=== PATIENT | female | born 2000 | race Caucasian/White ===

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

== ENCOUNTER 2019-03-10 23:00 | Outpatient (CLI) | payer BC ==
[~2019-03-10] VITALS: Ht 167.6 cm; Wt 68.6 kg
[~2019-03-10 23:00] MED LIST changes: +MACROBID 1100 MG/CAP PO; +PHENERGAN 25 TA25 MG PO; +PRENATAL MVI
--- NOTE | 2019-03-10 23:00 | NUR ---
Ambulatory to unit for assessment of contractions "for the last 3 hours", accompanied by boyfried-father of babies. Oriented to room, monitor, plan of care.
[2019-03-10 23:40] VITALS: BP 117/73; PULSE 86; TEMP 98.1
[2019-03-11 00:30] VITALS: BP 107/62; PULSE 88
[2019-03-11 00:45] VITALS: BP 119/78; PULSE 103
[2019-03-11 01:30] VITALS: BP 97/55; PULSE 80
[2019-03-11 01:59] LABS: COLLECTION METHOD CLEAN CATCH
[2019-03-11 02:14] LABS: MUCOUS Present /lpf; PH 6 (5-8); URINE APPEARANCE Clear; URINE BACTERIA Rare /hpf; URINE BILIRUBIN Negative (NEGATIVE); URINE BLOOD Negative (NEGATIVE); URINE COLOR Yellow; URINE GLUCOSE Negative (NEGATIVE); URINE KETONE 2+ (NEGATIVE); URINE LEUKOCYTE ESTERASE 3+ (NEGATIVE); URINE NITRATE Negative (NEGATIVE); URINE PROTEIN(semi-quant) Negative (NEGATIVE); URINE RBC 0-2 /hpf
[2019-03-11 02:20] LABS: TRICYCLIC ANTIDEPRESS URINE NEGATIVE
--- NOTE | 2019-03-11 04:15 | NUR ---
Discharge instructions reviewed with pt, questions invited and answered. Ambulatory off unit.
== END 2019-03-11 04:20 | disposition home or self-care (01) ==
LOC: LDRO 23:00
PROVIDERS: Obstetrics & Gynecology
DX: O62.9 Abnormality of forces of labor, unspecified (principal); Z3A.30 30 weeks gestation of pregnancy
CPT/HCPCS: J3105; J7120

== ENCOUNTER 2019-03-26 23:54 | Outpatient (CLI) | payer BC ==
[~2019-03-26] VITALS: Ht 170.2 cm; Wt 68.6 kg
--- NOTE | 2019-03-27 | NUR ---
Pt arrived on unit ambulatory and escorted by significant other. Pt reports twin with cramping for the last hour while at home resting. Pt denies any leaking of fluid, vaginal bleeding and reports normal movement. EFM and toco monitors started. Vital signs WNL. SVE by this RN /. Information reviewed with Dr. Schmidt. FHR tracing reviewed. Orders for labor assessment received.
[2019-03-27 00:19] VITALS: BP 118/78; PULSE 67; TEMP 98.1
--- NOTE | 2019-03-27 01:35 | NUR ---
SVE by this RN with no change. Information reviewed with Dr. Schmidt. FHR tracing and ctx pattern reviewed. Orders for discharge home received. Discharge information, instructions and follow up care reviewed with pt and significant other at the bedside. Both verbalized an understanding, agree with the plan and states no questions or concerns at this time.
== END 2019-03-27 01:45 | disposition home or self-care (01) ==
LOC: LDRO 23:54
DX: O62.9 Abnormality of forces of labor, unspecified (principal); Z3A.33 33 weeks gestation of pregnancy

== ENCOUNTER 2019-03-28 09:30 | Inpatient (IN) | payer BC ==
[2019-03-28] VITALS (26 sets, daily range): BP systolic 84–128; BP diastolic 9–92; PULSE 54–100; TEMP 97.6–97.9
[~2019-03-28] VITALS: Ht 170.2 cm; Wt 70.9 kg
--- NOTE | 2019-03-28 09:35 | NUR ---
Pt here from ER and [facility]. 33week twin gestation that was [address] Grace. Pt to EFM, explained. Baby A to left lower abdomen and baby B is right lower abdomen. VSS, afebrile. Assessment complete. Dr Grace here and orders obtained. Baby A is breech presentation. IV #1 started to right wrist, lab work obtained. LR started and Pen G 5mu started IVPB. IV #2 IV started to left hand, 4gm Magnesium Sulfate started, see EMAR. 0955:Sultana catheter placed. UA and Urine drug screen obtained. Baby A and baby B is reactive at this time. 1007: Mag 2gm/hr started. 1015:Dr Grace at bedside. SVE: 100/0. Plan of care is to deliver twins here and [facility] team is on there way. Will wait for NICU team to be here for c/section unless delivery is eminent before there arrival.
[2019-03-28 09:59] LABS: COLLECTION METHOD CATHETER
[2019-03-28 10:05] LABS: BASO % 0.3 % (0.0-2.0); EOS # 0.1 (0.0-0.7); EOS % 0.6 % (0-4.0); GRAN # 7.3 (1.4-6.5); GRAN % 67.2 % (42.2-75.2); HEMATOCRIT 37.2 % (35.0-45.0); HEMOGLOBIN 12.2 g/dl (12.0-15.0); LYMPH # 2.6 (1.2-3.4); LYMPH % 23.6 % (20.0-51.0); MEAN CELL VOLUME 95 fl (80.0-95.0); MEAN CORPUSCULAR HEMOGLOBIN 31 pg (26.0-32.0); MEAN CORPUSCULAR HGB CONC 33 g/dl (33.0-37.0); MEAN PLATELET VOLUME 10.8 fl (7.4-10.4); MONO # 0.8 (0.1-0.6); MONO % 7.8 % (1.7-9.3); PLATELET COUNT 189 K/mm3 (130-400); RED BLOOD COUNT 3.92 M/mm3 (4.10-5.30); REDCELL DISTRIBUTION WIDTH-CV 13.5 % (11.5-14.5)
[2019-03-28 10:10] LABS: MUCOUS Present /lpf; PH 6 (5-8); SQUAMOUS EPITHELIAL 0-2 /hpf; URINE APPEARANCE Clear; URINE BACTERIA None Seen /hpf; URINE BILIRUBIN Negative (NEGATIVE); URINE BLOOD 1+ (NEGATIVE); URINE COLOR Yellow; URINE GLUCOSE Negative (NEGATIVE); URINE KETONE Trace (NEGATIVE); URINE LEUKOCYTE ESTERASE Negative (NEGATIVE); URINE NITRATE Negative (NEGATIVE); URINE PROTEIN(semi-quant) Negative (NEGATIVE); URINE UROBILINOGEN Negative (NEGATIVE)
[2019-03-28 10:12] LABS: ALBUMIN 3.3 gm/dL (3.5-5.0); BILIRUBIN,TOTAL 0.4 mg/dL (0.0-1.0); CALCIUM 8.8 mg/dL (8.4-10.2); CREATININE, serum 0.47 (0.52-1.25); POTASSIUM 3.7 mmol/L (3.4-5.0); TOTAL PROTEIN 6.6 gm/dL (6.4-8.2)
[2019-03-28 10:28] LABS: TRICYCLIC ANTIDEPRESS URINE NEGATIVE
--- NOTE | 2019-03-28 20:00 | NUR ---
ABD BINDER APPLIED- AMBULATES ENTIRE UNIT WITHOUT DIFFICULTY 0001: PARENTS VISIT
[2019-03-29 01:18] VITALS: BP 101/67; PULSE 63; TEMP 98.1
[2019-03-29 05:17] VITALS: BP 99/75; PULSE 59; TEMP 97.9
[2019-03-29 06:45] LABS: HEMOGLOBIN 10.5 g/dl (12.0-15.0)
[2019-03-29 06:50] VITALS: BP 107/72; PULSE 67; TEMP 97.6
[2019-03-29 07:05] LABS: HEMATOCRIT 32.9 % (35.0-45.0)
[2019-03-29] MEDS ORDERED: MOTRIN 600600 MG/TAB PO (08:50)
[2019-03-29] MEDS ORDERED: PERCOCET 325 MG1 TA2 PO (08:51)
--- NOTE | 2019-03-29 09:19 | NUR ---
Initial visit; Patient thanked [employer] for looking in on her and offering congratulations for the of her twins who have been transferred to [facility]. Al[employer] P[employer]rer will keep them in her prayers.
--- NOTE | 2019-03-29 12:23 | NUR ---
HECTOR rec'd consult due to patient's prior drug use history, bipolar, and depression. HECTOR met with patient. Patient is a new mother of twins. Patient's fiance/father of baby is and involved. Patient reports her parents lives in [place] but are her in [place] and plan to stay with patient for a few months after the twins are discharged from [facility]. Patient also has other local family support from her grandmother and also her fiances family. SW and patient discussed her prior drug history. Patient reports she has not smoked marijuana since prior to . Patient reports her fiance is very supportive in keeping her clean and she does not feel she needs drug treatment. Patient reports she has had a therapist in the past but does not seen her since October. Patient did not feel her therapist was beneficial to her. Patient is aware of the services that are provided on [facility] and will utilize them if needed. HECTOR provided a [facility] resouce guide as well. HECTOR reported back to patient's nurse.
== END 2019-03-29 12:30 | disposition home or self-care (01) | DRG 788 ==
LOC: LDRO 09:30 → LDR 09:31 → OB 19:10
PROVIDERS: ADMIT Obstetrics & Gynecology
PROC: 10D00Z1 Extraction of Products of Conception, Low, Open Approach (ICD-10-PCS; principal; 2019-03-28)
DX: O60.14X0 Preterm labor third trimester with preterm delivery third trimester, not applicable or unspecified (principal); O32.8XX1 Maternal care for other malpresentation of fetus, fetus 1; O32.8XX2 Maternal care for other malpresentation of fetus, fetus 2; O30.043 Twin pregnancy, dichorionic/diamniotic, third trimester; J45.909 Unspecified asthma, uncomplicated; O99.52 Diseases of the respiratory system complicating childbirth; Z37.2 Twins, both liveborn; Z3A.33 33 weeks gestation of pregnancy
CPT/HCPCS: J0690; J1885; J2270; J2370; J2405; J2540; J2590; J3475; J7120

== ENCOUNTER 2019-06-24 01:35 | Emergency (ER) | payer OTHER, BC ==
[~2019-06-24] VITALS: Ht 170.2 cm; Wt 62.7 kg
[~2019-06-24 01:35] MED LIST changes: +MOTRIN 600600 MG/TAB PO; +PERCOCET 325 MG1 TA2 PO
[2019-06-24 02:41] LABS: COLLECTION METHOD CLEAN CATCH
[2019-06-24 02:47] LABS: MUCOUS Present /lpf; PH 5 (5-8); SQUAMOUS EPITHELIAL 0-2 /hpf; URINE APPEARANCE Hazy; URINE BACTERIA None Seen /hpf; URINE BILIRUBIN Positive (NEGATIVE); URINE BLOOD Negative (NEGATIVE); URINE COLOR Yellow; URINE GLUCOSE Negative (NEGATIVE); URINE KETONE Negative (NEGATIVE); URINE LEUKOCYTE ESTERASE Negative (NEGATIVE); URINE NITRATE Negative (NEGATIVE); URINE PROTEIN(semi-quant) Negative (NEGATIVE); URINE RBC 0-2 /hpf
[2019-06-24 03:20] LABS: BASO # 0.1 (0.0-0.2); BASO % 0.9 % (0.0-2.0); EOS # 0.1 (0.0-0.7); EOS % 1.2 % (0-4.0); GRAN % 52.3 % (42.2-75.2); HEMATOCRIT 43.2 % (35.0-45.0); HEMOGLOBIN 13.6 g/dl (12.0-15.0); LYMPH # 2.8 (1.2-3.4); LYMPH % 36.4 % (20.0-51.0); MEAN CELL VOLUME 95 fl (80.0-95.0); MEAN CORPUSCULAR HEMOGLOBIN 30 pg (26.0-32.0); MEAN CORPUSCULAR HGB CONC 32 g/dl (33.0-37.0); MEAN PLATELET VOLUME 10.6 fl (7.4-10.4); MONO # 0.7 (0.1-0.6); MONO % 8.9 % (1.7-9.3); PLATELET COUNT 284 K/mm3 (130-400); RED BLOOD COUNT 4.57 M/mm3 (4.10-5.30); REDCELL DISTRIBUTION WIDTH-CV 12.9 % (11.5-14.5)
[2019-06-24 03:30] LABS: ALANINE AMINOTRANSFERASE < 6 U/L (9-52); ALBUMIN 4.5 gm/dL (3.5-5.0); ALKALINE PHOSPHATASE 56 U/L (50-136); ANION GAP 10 mmol/L (7-16); AST,SGOT 15 U/L (15-37); BILIRUBIN,TOTAL 0.2 mg/dL (0.0-1.0); BLOOD UREA NITROGEN 20 mg/dL (7-17); CALCIUM 9.8 mg/dL (8.4-10.2); CARBON DIOXIDE 27 mmol/L (22-30); CHLORIDE 105 mmol/L (98-107); CREATININE, serum 0.86 (0.52-1.25); GLUCOSE 91 mg/dL (74-106); SODIUM 141 mmol/L (137-145); TOTAL PROTEIN 8.2 gm/dL (6.4-8.2)
[2019-06-24 03:42] LABS: ACETAMINOPHEN < 10 ug/mL (10-30); ALCOHOL(ethanol),MEDICAL < 10 mg/dL; SALICYLATE < 1.0 mg/dL
[2019-06-24 03:53] LABS: TRICYCLIC ANTIDEPRESS URINE NEGATIVE
[2019-06-24 06:41] VITALS: TEMP 98.3
[2019-06-24 06:47] VITALS: BP 98/63; PULSE 61
== END 2019-06-24 07:07 | disposition home or self-care (01) ==
LOC: COL.ER 01:35
PROVIDERS: Emergency Medicine
DX: T50.992A Poisoning by other drugs, medicaments and biological substances, intentional self-harm, initial encounter (principal); R45.851 Suicidal ideations; F31.9 Bipolar disorder, unspecified

== ENCOUNTER 2021-05-23 22:13 | Emergency (ER) | payer OTHER ==
[~2021-05-23] VITALS: Ht 165.1 cm; Wt 54.5 kg
[2021-05-23 22:25] VITALS: TEMP 97
[2021-05-23 23:05] LABS: BASO # 0.1 K/mm3 (0.0-0.2); BASO % 0.4 % (0.0-2.0); EOS # 0.1 K/mm3 (0.0-0.7); EOS % 0.8 % (0-4.0); GRAN # 8.7 K/mm3 (1.4-6.5); GRAN % 70.3 % (42.2-75.2); HEMATOCRIT 42.9 % (37.0-47.0); HEMOGLOBIN 13.7 g/dl (12.5-16.0); LYMPH # 2.7 K/mm3 (1.2-3.4); LYMPH % 21.7 % (20.0-51.0); MEAN CELL VOLUME 92 fl (80.0-100.0); MEAN CORPUSCULAR HEMOGLOBIN 30 pg (27.0-31.0); MEAN CORPUSCULAR HGB CONC 32 g/dl (33.0-37.0); MEAN PLATELET VOLUME 10.2 fl (7.4-10.4); MONO # 0.8 K/mm3 (0.1-0.6); MONO % 6.5 % (1.7-9.3); PLATELET COUNT 304 K/mm3 (130-400); RED BLOOD COUNT 4.65 M/mm3 (4.10-5.30); REDCELL DISTRIBUTION WIDTH-CV 13.4 % (11.5-14.5)
[2021-05-23 23:35] LABS: COLLECTION METHOD CLEAN CATCH
[2021-05-23 23:36] LABS: ALANINE AMINOTRANSFERASE 14 U/L (0-55); ALBUMIN 4.4 gm/dL (3.5-5.0); ALKALINE PHOSPHATASE 75 U/L (0-750); ANION GAP 11 mmol/L (7-16); AST,SGOT 14 U/L (5-34); BILIRUBIN,TOTAL 0.2 mg/dL (0.2-1.2); BLOOD UREA NITROGEN 17 mg/dL (7-19); CARBON DIOXIDE 25 mmol/L (22-29); CHLORIDE 106 mmol/L (98-107); CREATININE, serum 0.76 mg/dL (0.57-1.11); GLUCOSE 89 mg/dL (70-99); POTASSIUM 4.2 mmol/L (3.5-4.5); SODIUM 142 mmol/L (136-145); TOTAL PROTEIN 8.1 gm/dL (6.2-8.1)
[2021-05-23 23:38] LABS: ACETAMINOPHEN < 1.0 ug/mL (10-30); ALCOHOL(ethanol),MEDICAL < 10 mg/dL (0-10); SALICYLATE < 5.0 mg/dL (15.0-30.0)
[2021-05-23 23:42] LABS: MUCOUS Present /lpf; PH 5 (5-8); URINE APPEARANCE Hazy; URINE BACTERIA None Seen /hpf; URINE BILIRUBIN Negative (NEGATIVE); URINE BLOOD Negative (NEGATIVE); URINE COLOR Yellow; URINE GLUCOSE Negative (NEGATIVE); URINE KETONE Trace (NEGATIVE); URINE LEUKOCYTE ESTERASE Negative (NEGATIVE); URINE NITRATE Negative (NEGATIVE); URINE PROTEIN(semi-quant) Negative (NEGATIVE); URINE RBC 0-2 /hpf; URINE UROBILINOGEN Negative (NEGATIVE)
[2021-05-23 23:51] LABS: TRICYCLIC ANTIDEPRESS URINE NEGATIVE
[2021-05-24 10:36] VITALS: BP 114/73; PULSE 91
== END 2021-05-24 10:30 ==
LOC: COL.ER 22:13
PROVIDERS: Nurse Practitioner
DX: R45.851 Suicidal ideations (principal); J45.909 Unspecified asthma, uncomplicated; F17.200 Nicotine dependence, unspecified, uncomplicated; Z20.822 Contact with and (suspected) exposure to COVID-19

== ENCOUNTER 2021-08-21 20:37 | Inpatient (IN) | payer OTHER ==
[~2021-08-21] VITALS: Wt 80.8 kg
[2021-08-21 21:31] LABS: BASO # 0.1 K/mm3 (0.0-0.2); BASO % 0.4 % (0.0-2.0); EOS # 0.1 K/mm3 (0.0-0.7); EOS % 0.5 % (0.0-4.0); GRAN # 11.9 K/mm3 (1.4-6.5); GRAN % 79.2 % (42.2-75.2); HEMATOCRIT 40.4 % (37.0-47.0); LYMPH % 13.5 % (20.0-51.0); MEAN CELL VOLUME 89 fl (80.0-100.0); MEAN CORPUSCULAR HEMOGLOBIN 29 pg (27-31); MEAN CORPUSCULAR HGB CONC 32 g/dl (33.0-37.0); MEAN PLATELET VOLUME 9.9 fl (7.4-10.4); MONO # 0.9 K/mm3 (0.1-0.6); MONO % 6.1 % (1.7-9.3); PLATELET COUNT 363 K/mm3 (130-400); RED BLOOD COUNT 4.54 M/mm3 (4.10-5.30); REDCELL DISTRIBUTION WIDTH-CV 13.2 % (11.5-14.5)
[2021-08-21 21:57] LABS: ALANINE AMINOTRANSFERASE 20 U/L (0-55); ALBUMIN 4.2 gm/dL (3.5-5.0); ALKALINE PHOSPHATASE 62 U/L (40-150); ANION GAP 10 mmol/L (7-16); AST,SGOT 33 U/L (5-34); BILIRUBIN,TOTAL 0.4 mg/dL (0.2-1.2); BLOOD UREA NITROGEN 16 mg/dL (7-19); CALCIUM 9.3 mg/dL (8.4-10.2); CARBON DIOXIDE 21 mmol/L (22-29); CHLORIDE 109 mmol/L (98-107); CREATININE, serum 0.96 mg/dL (0.57-1.11); GLUCOSE 117 mg/dL (70-99); POTASSIUM 4.3 mmol/L (3.5-4.5); SODIUM 140 mmol/L (136-145); TOTAL PROTEIN 7.8 gm/dL (6.2-8.1)
[2021-08-21 22:05] LABS: INR 1.2 (0.8-3.0); PROTHROMBIN TIME 12.8 SECONDS (9.7-12.8)
[2021-08-21 22:15] LABS: ALCOHOL(ethanol),MEDICAL < 10 mg/dL (0-10); SALICYLATE < 5.0 mg/dL (15.0-30.0)
[2021-08-22] VITALS (416 sets, daily range): BP systolic 102–126; BP diastolic 66–86; PULSE 70–86; TEMP 97.8–98.1; O2SAT 68–100
[2021-08-22 02:48] LABS: INR 1.3 (0.8-3.0); PROTHROMBIN TIME 13.9 SECONDS (9.7-12.8)
[2021-08-22 02:56] LABS: BILIRUBIN,TOTAL 0.4 mg/dL (0.2-1.2); C-REACTIVE PROTEIN 0.38 mg/dL (0.00-0.50)
[2021-08-22 07:05] LABS: BASO % 0.3 % (0.0-2.0); EOS % 0.3 % (0.0-4.0); GRAN # 5.3 K/mm3 (1.4-6.5); GRAN % 57.9 % (42.2-75.2); HEMOGLOBIN 12.9 g/dl (12.5-16.0); LYMPH % 32.8 % (20.0-51.0); MEAN CELL VOLUME 87 fl (80.0-100.0); MEAN CORPUSCULAR HEMOGLOBIN 29 pg (27-31); MEAN CORPUSCULAR HGB CONC 33 g/dl (33.0-37.0); MONO # 0.8 K/mm3 (0.1-0.6); MONO % 8.5 % (1.7-9.3); PLATELET COUNT 315 K/mm3 (130-400); RED BLOOD COUNT 4.46 M/mm3 (4.10-5.30); REDCELL DISTRIBUTION WIDTH-CV 13.1 % (11.5-14.5)
[2021-08-22 07:26] LABS: ALBUMIN 3.6 gm/dL (3.5-5.0); BILIRUBIN,DIRECT 0.2 mg/dL (0.0-0.5); BILIRUBIN,TOTAL 0.5 mg/dL (0.2-1.2); TOTAL PROTEIN 6.9 gm/dL (6.2-8.1)
[2021-08-22 07:28] LABS: ALBUMIN 3.6 gm/dL (3.5-5.0); BILIRUBIN,TOTAL 0.5 mg/dL (0.2-1.2); CALCIUM 8.7 mg/dL (8.4-10.2); CREATININE, serum 0.73 mg/dL (0.57-1.11); POTASSIUM 3.9 mmol/L (3.5-4.5)
--- NOTE | 2021-08-22 08:11 | NUR ---
report received from AMINTA Bartlett. Patient will come over to room 4 soon.
--- NOTE | 2021-08-22 08:20 | NUR ---
Patient arrive to ICU at this time. She is able to ambulate from cart to bed. She is on room air and only complains of slight pain to the right AC iv site. Denies headache or any other discomfort. VS WNL. Patient is oriented to room, assisted with ordering breakfast, assessment completed. Call light within reach and she is asked to call for any assistance.
[2021-08-22 10:24] LABS: COLLECTION METHOD CLEAN CATCH
[2021-08-22 10:31] LABS: MUCOUS Present (NOT PRESENT); PH 5 (5-8); URINE APPEARANCE Clear (CLEAR/HAZY); URINE BACTERIA None Seen /hpf (NONE SEEN); URINE BILIRUBIN Negative (NEGATIVE); URINE BLOOD Negative (NEGATIVE); URINE COLOR Yellow (YELLOW); URINE GLUCOSE Negative (NEGATIVE); URINE KETONE 2+ (NEGATIVE); URINE LEUKOCYTE ESTERASE Negative (NEGATIVE); URINE NITRATE Negative (NEGATIVE); URINE PROTEIN(semi-quant) Negative (NEGATIVE); URINE RBC 0-2 /hpf (0-2); URINE UROBILINOGEN Negative (NEGATIVE)
[2021-08-22 10:38] LABS: TRICYCLIC ANTIDEPRESS URINE NEGATIVE
--- NOTE | 2021-08-22 13:52 | NUR ---
Social Services Director contacted patient by phone to discuss discharge planning as she is in isolation for [facility]. Patient lives in [place] with her , Keyon (ph#[phone]) and their twins, age 5. Patient's parents, Pavel (ph#[phone]) and (ph#[phone]) live in [place]. Patient reports she does not have a current primary care physician but utilizes [facility] on [address] as needed. Patient obtains medications from [facility] pharmacy. Patient sees a psychiatrist and therapist on [place]. Patient does not use any DME and is independent with ADLS. Patient does not have Advance Directives and her , Keyon is her legal next of kin. Patient plans to return home upon discharge.
--- NOTE | 2021-08-22 18:42 | NUR ---
Patient did very well this shift. She is up independently in room. She calls appropriately. No complaints of pain or discomfort. She has very pleasant demeanor during each interaction. Will redraw lab work at 2100 and then discontinue Acetadote if acetaminophen level is negative at this time. This order was given by Dr. Roche through guidance from poison control.
--- NOTE | 2021-08-22 20:09 | NUR ---
PT SITTING UP IN BED. AWAKE, AAOX4. DENIES PAIN, SOA, N/V. REPORTS NO NEEDS. PT USING TOILET IN ROOM, HAS CALL LIGHT AND STATES UNDERSTANDING FOR POC FOR NIGHT. LABS TO BE DRAWN AT 2100, WILL FOLLOW. VSS, WILL CONTINUE TO MONITOR.
[2021-08-22 21:18] LABS: INR 1.4 (0.8-3.0)
[2021-08-22 21:38] LABS: ALBUMIN 3.4 gm/dL (3.5-5.0); BILIRUBIN,TOTAL 0.4 mg/dL (0.2-1.2); CALCIUM 8.7 mg/dL (8.4-10.2); CREATININE, serum 0.66 mg/dL (0.57-1.11); POTASSIUM 4.1 mmol/L (3.5-4.5); TOTAL PROTEIN 6.9 gm/dL (6.2-8.1)
--- NOTE | 2021-08-22 21:51 | NUR ---
ACETAMINOPHEN LEVEL 2, PER ORDER ACETADOTE INFUSION TURNED OFF. IV FLUSHED, SALINE LOCKED. PT REPORTS NO NEEDS. WILL CONTINUE TO MONITOR.
--- NOTE | 2021-08-22 22:38 | NUR ---
CALL FROM POISON CONTROL, UPDATED THEM WITH LABS AND VITAL SIGNS.
[2021-08-23] VITALS: BP 105/82; PULSE 60; TEMP 97.8
[2021-08-23 04:00] VITALS: PULSE 70; TEMP 98
[2021-08-23 06:00] VITALS: BP 113/99
[2021-08-23 06:38] LABS: BASO # 0.1 K/mm3 (0.0-0.2); BASO % 0.8 % (0.0-2.0); EOS # 0.1 K/mm3 (0.0-0.7); EOS % 1.5 % (0.0-4.0); GRAN # 3.9 K/mm3 (1.4-6.5); GRAN % 50.5 % (42.2-75.2); HEMATOCRIT 40.7 % (37.0-47.0); HEMOGLOBIN 13.2 g/dl (12.5-16.0); LYMPH % 38.6 % (20.0-51.0); MEAN CELL VOLUME 90 fl (80.0-100.0); MEAN CORPUSCULAR HEMOGLOBIN 29 pg (27-31); MEAN CORPUSCULAR HGB CONC 32 g/dl (33.0-37.0); MEAN PLATELET VOLUME 9.8 fl (7.4-10.4); MONO # 0.7 K/mm3 (0.1-0.6); MONO % 8.3 % (1.7-9.3); PLATELET COUNT 310 K/mm3 (130-400); RED BLOOD COUNT 4.55 M/mm3 (4.10-5.30); REDCELL DISTRIBUTION WIDTH-CV 13.2 % (11.5-14.5)
[2021-08-23 07:08] LABS: ALBUMIN 3.6 gm/dL (3.5-5.0); BILIRUBIN,TOTAL 0.6 mg/dL (0.2-1.2); CALCIUM 8.7 mg/dL (8.4-10.2); CREATININE, serum 0.6 mg/dL (0.57-1.11); POTASSIUM 4.2 mmol/L (3.5-4.5); TOTAL PROTEIN 6.9 gm/dL (6.2-8.1)
[2021-08-23 07:27] LABS: BILIRUBIN,DIRECT 0.2 mg/dL (0.0-0.5)
--- NOTE | 2021-08-23 07:30 | NUR ---
Patient is sleeping with no evidence of discomfort. VS WNL. Acetadote is off since last night. Report received from AMINTA Rangel.
[2021-08-23 09:55] VITALS: O2SAT 98
--- NOTE | 2021-08-23 12:18 | NUR ---
discharge orders received. patient notified. she calls for her ride.
--- NOTE | 2021-08-23 13:50 | NUR ---
PATIENT WALKED OUT FOR DISCHARGE. TAKES HER HOME. DISCHARGE PAPERWORK HAD BEEN REVIEWED AND DISCHARGE PAPERWORK SIGNED BY PATIENT.
== END 2021-08-23 13:50 | disposition home or self-care (01) | DRG 917 ==
LOC: COL.ER 20:37 → ICU 22:40
PROVIDERS: Emergency Medicine; Nurse Practitioner Family; Student in an Organized Health Care Education/Training Program; ADMIT Internal Medicine
DX: T39.1X1A Poisoning by 4-Aminophenol derivatives, accidental (unintentional), initial encounter (principal); U07.1 COVID-19; E87.2 Acidosis; D64.9 Anemia, unspecified; J45.909 Unspecified asthma, uncomplicated; F31.9 Bipolar disorder, unspecified; F17.210 Nicotine dependence, cigarettes, uncomplicated; Z91.51 Personal history of suicidal behavior; Z23 Encounter for immunization
CPT/HCPCS: 99222-AI; 99233-AI; 99239; J0132; J7060; J7070; J7120

== ENCOUNTER 2023-05-30 21:10 | Emergency (ER) | payer OTHER ==
[~2023-05-30] VITALS: Ht 170.2 cm; Wt 81.8 kg
[2023-05-30 22:46] VITALS: BP 109/55; PULSE 80; TEMP 99
== END 2023-05-30 22:46 | disposition home or self-care (01) ==
LOC: COL.ER 21:10
DX: U07.1 COVID-19 (principal); R05.9 Cough, unspecified; R09.81 Nasal congestion; R51.9 Headache, unspecified; M79.10 Myalgia, unspecified site; F17.210 Nicotine dependence, cigarettes, uncomplicated; F17.290 Nicotine dependence, other tobacco product, uncomplicated